=== PATIENT | male | born 1985 | race Caucasian/White ===

== ENCOUNTER → 2020-04-25 | Outpatient (CLI) | payer OTHER | END | disposition home or self-care (01) | LOC: EMS 09:21 | DX: Z20.828 Contact with and (suspected) exposure to other viral communicable diseases (principal) | CPT/HCPCS: U0003-CS ==

== ENCOUNTER 2020-11-24 09:04 | Emergency (ER) | payer OTHER ==
[~2020-11-24] VITALS: Ht 175.3 cm; Wt 68.2 kg
[2020-11-24] MEDS ORDERED: PERTUSS(ACELL),DIPH,TET VAC/PF 0.5 ML SYRINGE IM. ONE (10:45)
[2020-11-24 10:55] VITALS: BP 139/83
== END 2020-11-24 11:06 | disposition home or self-care (01) ==
LOC: EMS 09:18
DX: S91.214A Laceration without foreign body of right lesser toe(s) with damage to nail, initial encounter (principal); L03.031 Cellulitis of right toe; W26.8XXA Contact with other sharp object(s), not elsewhere classified, initial encounter; Y93.89 Activity, other specified; Y92.89 Other specified places as the place of occurrence of the external cause; Y99.8 Other external cause status
CPT/HCPCS: 12001; 90471; 90715; 99283

== ENCOUNTER 2020-11-28 10:26 | Emergency (ER) | payer OTHER ==
[~2020-11-28] VITALS: Ht 175.3 cm; Wt 68.2 kg
[2020-11-28 11:50] VITALS: BP 132/74
== END 2020-11-28 11:51 | disposition home or self-care (01) ==
LOC: EMS 10:26
DX: S93.504A Unspecified sprain of right lesser toe(s), initial encounter (principal); F17.210 Nicotine dependence, cigarettes, uncomplicated; W22.8XXA Striking against or struck by other objects, initial encounter; Y93.11 Activity, swimming; Y92.89 Other specified places as the place of occurrence of the external cause; Y99.8 Other external cause status
CPT/HCPCS: 99283

== ENCOUNTER 2022-01-08 08:58 | Emergency (ER) | payer OTHER ==
[~2022-01-08] VITALS: Ht 175.3 cm; Wt 72.7 kg
[2022-01-08 09:01] VITALS: BP 129/76
[2022-01-08 09:30] LABS: COVID AG,FIA SOURCE NASOPHARYNGEAL
== END 2022-01-08 10:32 | disposition home or self-care (01) ==
LOC: EMS 08:58
DX: U07.1 COVID-19 (principal); F17.210 Nicotine dependence, cigarettes, uncomplicated; F10.20 Alcohol dependence, uncomplicated
CPT/HCPCS: 87426; 99283; C9803; U0003

== ENCOUNTER 2022-01-08 16:13 | Emergency (ER) | payer OTHER ==
[~2022-01-08] VITALS: Ht 167.6 cm; Wt 67.0 kg
[2022-01-08 16:17] VITALS: BP 118/67
[2022-01-08] MEDS ORDERED: BEBTELOVIMAB (EUA) 175 MG/2 ML VIAL IVP ONE (17:45)
== END 2022-01-08 18:37 | disposition home or self-care (01) ==
LOC: EMS 16:14
DX: U07.1 COVID-19 (principal); F17.210 Nicotine dependence, cigarettes, uncomplicated
CPT/HCPCS: 96374; 99283; Q9967

== ENCOUNTER 2022-04-06 08:38 | Emergency (ER) | payer OTHER ==
[~2022-04-06] VITALS: Ht 175.3 cm; Wt 72.7 kg
[2022-04-06 10:40] VITALS: BP 122/72
== END 2022-04-06 10:40 | disposition home or self-care (01) ==
LOC: EMS 08:40
DX: S62.637A Displaced fracture of distal phalanx of left little finger, initial encounter for closed fracture (principal); X50.9XXA Other and unspecified overexertion or strenuous movements or postures, initial encounter; Y93.89 Activity, other specified; Y92.89 Other specified places as the place of occurrence of the external cause; Y99.8 Other external cause status
CPT/HCPCS: 99283

== ENCOUNTER 2022-04-28 08:00 | Emergency (ER) | payer OTHER ==
[~2022-04-28] VITALS: Ht 175.3 cm; Wt 75.0 kg
[2022-04-28 08:01] VITALS: BP 125/82
[2022-04-28 08:25] LABS: COVID AG,FIA SOURCE NASOPHARYNGEAL
[2022-04-28 08:53] LABS: INFLUENZA TYPE A NEGATIVE FOR TYPE A (NEGATIVE); INFLUENZA TYPE B NEGATIVE FOR TYPE B (NEGATIVE)
== END 2022-04-28 09:24 | disposition home or self-care (01) ==
LOC: EMS 08:05
DX: B34.9 Viral infection, unspecified (principal); Z20.822 Contact with and (suspected) exposure to COVID-19; R09.81 Nasal congestion; F10.20 Alcohol dependence, uncomplicated; F17.210 Nicotine dependence, cigarettes, uncomplicated
CPT/HCPCS: 99283; 87426; 87804; U0003; C9803

== ENCOUNTER 2023-07-21 04:11 | Emergency (ER) | payer OTHER ==
[~2023-07-21] VITALS: Ht 165.1 cm; Wt 67.0 kg
[2023-07-21] MEDS ORDERED: RINGERS SOLUTION,LACTATED 1,000 ML IV ONE (04:15)
[2023-07-21] MEDS ORDERED: CIPROFLOXACIN HCL 250 MG TABLET PO ONE (04:15)
[2023-07-21] MEDS ORDERED: DIPHENOXYLATE/ATROP 2.5-0.025 MG TABLET PO ONE (04:15)
[2023-07-21 04:35] VITALS: BP 120/89; PULSE 83; RESP 16; TEMP 97.9
[2023-07-21 04:36] LABS: BASOPHILS % (AUTO) 0.8 % (0.0-2.0); EOSINOPHILS % (AUTO) 4.4 % (1.0-6.0); HEMATOCRIT 38.5 % (41-53); HEMOGLOBIN 13.1 g/dL (13.5-17.5); LYMPHOCYTES # (AUTO) 1.4 K/uL (1.0-4.8); MEAN CORPUSCULAR HEMOGLOBIN 29.2 pg (26.0-34.0); MEAN CORPUSCULAR VOLUME 86 fL (80-100); MONOCYTES # (AUTO) 0.7 K/uL (0.1-1.0); MONOCYTES % (AUTO) 11.7 % (2.0-9.0); NEUTROPHILS # (AUTO) 3.4 K/uL (1.8-7.7); NEUTROPHILS % (AUTO) 59.1 % (40.0-70.0); PLATELET COUNT (AUTO) 284 K/uL (150-450); RED BLOOD CELL COUNT(AUTO) 4.48 MIL/uL (4.50-5.90); WHITE BLOOD COUNT (AUTO) 5.8 K/uL (4.5-11.0)
[2023-07-21 05:04] LABS: ANION GAP 8 mmol/L (8-16); CALCIUM, TOTAL 9.8 mg/dL (8.8-10.5); CARBON DIOXIDE 28 mmol/L (22-29); CHLORIDE 103 mmol/L (98-107); CREATININE 0.86 mg/dL (0.60-1.30); GLOMERULAR FILTR. RATE CALC > 60 mL/min (>60); GLUCOSE,RANDOM 111 mg/dL (70-110); POTASSIUM 3.8 mmol/L (3.5-5.1); SODIUM SERUM 139 mmol/L (136-145); UREA NITROGEN, BLOOD 17 mg/dL (7-18)
== END 2023-07-21 05:37 | disposition home or self-care (01) ==
LOC: EMS 04:12
DX: R19.7 Diarrhea, unspecified (principal); E86.0 Dehydration; F17.210 Nicotine dependence, cigarettes, uncomplicated
CPT/HCPCS: 99283; 80048; 85025; 36415; 96372; J7120

== ENCOUNTER 2023-07-27 13:03 | Emergency (ER) | payer OTHER ==
[~2023-07-27] VITALS: Ht 175.3 cm; Wt 72.7 kg
[2023-07-27 13:10] VITALS: BP 123/79; PULSE 110; RESP 18; TEMP 99.8
[2023-07-27 13:57] LABS: INFLUENZA A-RTPCR,COMBO NEGATIVE FOR FLU A (NEGATIVE); RESPIRATORY SYNCYTIAL VRS-PCR NEGATIVE (NEGATIVE); SARS COVID19 RTPCR, COMBO NEGATIVE (NEGATIVE)
[2023-07-27 14:02] LABS: INFLUENZA B-RTPCR,COMBO POSITIVE FOR FLU B (NEGATIVE)
[2023-07-27] MEDS ORDERED: OSEL75 PO (14:13)
== END 2023-07-27 15:05 | disposition home or self-care (01) ==
LOC: EMS 13:12
DX: J11.1 Influenza due to unidentified influenza virus with other respiratory manifestations (principal); Z20.822 Contact with and (suspected) exposure to COVID-19
CPT/HCPCS: 99283; 0241U